=== PATIENT | female | born 1940 | race Caucasian/White ===

== ENCOUNTER 2019-09-06 10:59 | Emergency (ER) | payer MEDICARE, OTHER ==
[2019-09-06] MEDS ORDERED: Tetan/Diph/Pertus SYR(Tdap)* 0.5 ML SYR(BOOSTRIX) use SYR contains LATEX IM ONE (12:52)
--- NOTE | 2019-09-06 12:53 | ED ---
Head Injury - HPI Summary HPI Summary: Patient is a 79 y/o F presenting to the ED for a chief complaint of head injury after a fall down the stairs on 09/04/19. Patient states she put weight on the left side, where she has a prior injury, and tripped. Patient admits headache, nausea, skin tears on the right arm, and neck pain. She notes having an episode of hallucination that has since resolved. Patient denies LOC, vision changes, vomiting, or abdominal pain. She has taken Aleve for her headache without relief. Patient denies taking blood thinners. Last tetanus vaccination is unknown. She denies tobacco or drug use, but admits occasional alcohol use. Allergies noted. Medications reviewed. - History Of Current Complaint Chief Complaint: EDHeadInjury Stated Complaint: FALL PER PT Time Seen by Provider: 09/06/19 12:44 Hx Obtained From: Patient Mechanism Of Injury: Fall From A Standing Position Onset/Duration: Traumatic - Fall, Still Present Onset of Pain: Immediate Severity Currently: Moderate Severity Initially: Moderate Pain Intensity: 4 Pain Scale Used: 0-10 Numeric Location of Head Injury: Diffuse Associated Signs And Symptoms: Neck Pain, Nausea, Headache - Allergies/Home Medications Allergies/Adverse Reactions: Allergies Allergy/AdvReac Type Severity Reaction Status Date / Time Adhesive Tape Allergy RED ITCHY Verified 09/06/19 11:17 HIVES clindamycin Allergy Hives Verified 09/06/19 11:17 LINOCIN Allergy Hives Uncoded 09/06/19 11:17 PMH/Surg Hx/FS Hx/Imm Hx Previously Healthy: Yes Endocrine/Hematology History: Denies: Hx Sickle Cell Disease Cardiovascular History: Denies: Hx Congestive Heart Failure, Hx Hypertension, Hx Pacemaker/ICD, Other Cardiovascular Problems/Disorders Respiratory History: Denies: Hx Asthma, Other Respiratory Problems/Disorders GI History: Denies: Other GI Disorders History: Denies: Other Problems/Disorders Musculoskeletal History: Reports: Hx Arthritis - RIGHT THUMB JOINT Sensory History: Reports: Hx Cataracts - LEFT EYE Denies: Hx Contacts or Glasses, Hx Legally Blind, Hx Deafness, Hx Hearing Aid Opthamlomology History: Reports: Hx Cataracts - LEFT EYE Denies: Hx Contacts or Glasses, Hx Legally Blind EENT History: Denies: Hx Deafness Neurological History: Reports: Hx Migraine - OCCASIONAL Comment Only: Other Neuro Impairments/Disorders - FEL 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 SEVERAL COLONOSCOPIES;. 1985 HYSTERCECTOMY, [facility] BILAT CATARACT 2012 Hx Anesthesia Reactions: No Infectious Disease History: No Infectious Disease History: Denies: Hx Clostridium Difficile, Hx Hepatitis, Hx Human Immunodeficiency Virus (HIV), Hx of Known/Suspected MRSA, Hx Shingles, Hx Tuberculosis, Hx Known/ Suspected VRE, Hx Known/Suspected VRSA, History Other Infectious Disease, Traveled Outside the [place] in Last 30 Days - Family History Known Family History: Negative: Diabetes, Renal Disease - Social History Lives: With Family Alcohol Use: Rare Hx Substance Use: No Substance Use Type: Reports: None Hx Tobacco Use: No Smoking Status (MU): Never Smoked Tobacco Review of Systems Negative: Other - Negative vision changes Positive: Nausea. Negative: Abdominal Pain, Vomiting Positive: Myalgia - Neck Positive: Other - Positive skin tears on the right arm Positive: Headache. Negative: Syncope - LOC Psychological: Other - Positive hallucinations, resolved All Other Systems Reviewed And Are Negative: Yes Physical Exam - Summary Physical Exam Summary: Constitutional: Well-developed, Well-nourished, Alert. (-) Distressed Skin: Warm, Dry. HENT: Normocephalic; Atraumatic Eyes: Conjunctiva normal Neck: Musculoskeletal ROM normal neck. (-) JVD, (-) Stridor, (-) Tracheal deviation Cardio: Rhythm regular, rate normal, Heart sounds normal; Intact distal pulses; Radial pulses are 2+ and symmetric. (-) Murmur Pulmonary/Chest wall: Effort normal. (-) Respiratory distress, (-) Wheezes, (-) Rales Abd: Soft, (-) tenderness, (-) Distension, (-) Guarding, (-) Rebound Musculoskeletal: (-) Edema. 2 small areas of skin tears with no bony tenderness. Lymph: (-) Cervical adenopathy Neuro: Alert, Oriented x3 Psych: Mood and affect Normal Triage Information Reviewed: Yes Vital Signs On Initial Exam: Initial Vitals Temp Pulse Resp BP Pulse Ox 97.3 F 70 19 175/98 97 09/06/19 11:12 09/06/19 11:12 09/06/19 11:12 09/06/19 11:12 09/06/19 11:12 Vital Signs Reviewed: Yes Procedures - Sedation Patient Received Moderate/Deep Sedation with Procedure: No Diagnostics - Vital Signs Vital Signs Temp Pulse Resp BP Pulse Ox 09/06/19 11:12 97.3 F 70 19 175/98 97 - Laboratory Lab Statement: Any lab studies that have been ordered have been reviewed, and results considered in the medical decision making process. Head Injury Course/Dx Course Of Treatment: Patient is here 2 days after falling down stairs. Patient did hit her head and had some neck pain so a CT scan of her head and neck were performed which were negative. Patient has a couple of small superficial skin tears to her arm that do not need repair. Patient has no other injury. Patient is likely suffering from a concussion and was given information about that. - Diagnoses Provider Diagnoses: Concussion, Head injury Discharge ED - Sign-Out/Discharge Documenting (check all that apply): Patient Departure - Discharge - Discharge Plan Condition: Stable Disposition: HOME Patient Education Materials: Concussion (ED) Referrals: Chris Jensen MD [Primary Care Provider] - Additional Instructions: PLEASE RETURN TO EMERGENCY DEPARTMENT FOR ANY NEW OR WORSENING SYMPTOMS. Please follow up with your primary care physician. Please make all follow-ups in 1-3 days unless I advise you otherwise. Take Motrin or Tylenol for pain. If your concussion symptoms continue, there is a concussion center at [facility]. - Billing Disposition and Condition Condition: STABLE Disposition: Home - Attestation Statements Document Initiated by Livier: Yes Documenting Scribe: Ambreen Roblero Provider For Whom Livier is Documenting (Include Credential): Magdiel Zhong MD Scribe Attestation: Ambreen Jay, scribed for Magdiel Zhong MD on 09/06/19 at 1653. Scribe Documentation Reviewed: Yes Provider Attestation: The documentation as recorded by the Ambreen rebolledo accurately reflects the service I personally performed and the decisions made by , Magdiel Zhong MD Status of Scribe Document: Viewed
[2019-09-06 13:56] VITALS: BP 150/80
== END 2019-09-06 13:56 | disposition home or self-care (01) ==
LOC: ED 10:59
DX: S06.0X9A Concussion with loss of consciousness of unspecified duration, initial encounter (principal); Z23 Encounter for immunization; W10.9XXA Fall (on) (from) unspecified stairs and steps, initial encounter; Y92.9 Unspecified place or not applicable; Z88.1 Allergy status to other antibiotic agents; Z90.710 Acquired absence of both cervix and uterus
CPT/HCPCS: 70450; 72125; 90471; 90715; 99282

== ENCOUNTER 2019-10-03 16:00 | Emergency (ER) | payer MEDICARE ==
--- NOTE | 2019-10-03 16:04 | UC ---
General HPI - HPI Summary HPI Summary: 79 yo female presents, accompanied by , s/p fall. She tells me that, about 20min [employer], she was out on a walk with her and tripped over a tree root and fell forward. Landed on her forearms and hit her forehead against the muddy ground. Sustained a laceration to her midline forehead. Bandaged the area and came to . No LOC. Witnessed by . Currently she has a headache 5/10 , but states she has had a headache intermittently for the last 2 weeks as she had a fall down several steps about 2 weeks ago and sustained a concussion. She had a head CT at that time that was normal per pt. She does not take any anti- coags or aspirin. She denies dizziness, vision changes, SOB, chest pain, abdominal pain, n/v, numbness, tingling, or neck pain. tdap was updated 2 weeks ago after other fall - History of Current Complaint Stated Complaint: FALL/FACIAL LACERATION Time Seen by Provider: 10/03/19 16:04 Hx Obtained From: Patient Onset/Duration: Sudden Onset Onset Severity: Moderate Current Severity: Moderate Pain Intensity: 5 - Allergy/Home Medications Allergies/Adverse Reactions: Allergies Allergy/AdvReac Type Severity Reaction Status Date / Time Adhesive Tape Allergy RED ITCHY Verified 10/03/19 16:26 HIVES clindamycin Allergy Hives Verified 10/03/19 16:26 LINOCIN Allergy Hives Uncoded 10/03/19 16:26 Home Medications: Home Medications Calcium Carbonate [Calcium 600] 600 mg PO QAM 03/25/13 [History Confirmed ] Conjugated Estrogens TAB* [Premarin TAB*] 0.3 mg PO QAM 03/25/13 [History Confirmed 10/03/19] Ibuprofen TAB* [Advil TAB*] 200 mg PO PRN 03/25/13 [History Confirmed 06/16/13] Multivitamin [Multivitamins] 1 cap PO QAM 03/25/13 [History Confirmed 10/03/19] Harris-3 Fatty Acids [Fish Oil] 1,000 mg PO QAM 03/25/13 [History Confirmed 10/03] Vitamin B 12 1 tab PO QAM 03/25/13 [History Confirmed 10/03/19] Vitamin D 1 cap PO QAM 03/25/13 [History Confirmed 10/03/19] Citalopram TAB* [Celexa TAB*] 1 tab PO DAILY 01/26/16 [History Confirmed ] diPHENhydraMINE PO* [Benadryl PO*] 1 tab PO DAILY 01/26/16 [History Confirmed ] PMH/Surg Hx/FS Hx/Imm Hx Psychological History: Anxiety, Depression - Surgical History Surgical History: Yes Surgery Procedure, Year, and Place: 2009 RECTOCELE REPAIR and cystocele, [facility]. SEVERAL COLONOSCOPIES;. 1985 HYSTERCECTOMY, [facility] [place] BILAT CATARACT 2012 - Family History Known Family History: Negative: Diabetes, Renal Disease - Social History Occupation: Retired Lives: With Family Alcohol Use: Rare Substance Use Type: None Smoking Status (MU): Never Smoked Tobacco - Immunization History Most Recent Tetanus Shot: 2004 Review of Systems All Other Systems Reviewed And Are Negative: No Constitutional: Positive: Negative Skin: Positive: Other - laceration forehead Eyes: Positive: Negative ENT: Positive: Negative Respiratory: Positive: Negative Cardiovascular: Positive: Negative Gastrointestinal: Positive: Negative Genitourinary: Positive: Negative Motor: Positive: Negative Neurovascular: Positive: Negative Musculoskeletal: Positive: Negative Neurological/Mental Status: Positive: Headache Psychological: Positive: Negative Physical Exam - Summary Physical Exam Summary: GENERAL: NAD. WDWN. No pain distress. SKIN: Midline forehead with vertical linear 2.0cm laceration partial thickness - well approximated at rest. Clean. Scant bleeding. HEENT: Head: AT/NC. No raccoon eyes or battles sign. Eyes: PERRLA. EOM intact. Conjunctiva clear without inflammation or discharge. Ears: Hearing grossly normal. TMs intact, no bulging, erythema, or edema. No hemotympanum Nose: Nasal mucosa pink and moist. NTTP maxillary and frontal sinus. Throat: Posterior oropharynx without exudates, erythema, or tonsillar enlargement. Uvula midline. NECK: Supple. Nontender. FROM CHEST: CTAB. No r/r/w. No accessory muscle use. Breathing comfortably and in no distress. CV: RRR. Pulses intact. Brisk cap refill. ABDOMEN: Soft. NTTP. Bowel sounds present MSK: FROM in B/L UEs and LEs with symmetric strength. NEURO: A&Ox3. 3 word recall, remote, recent memory, ability to follow 2-step directions, and attention intact. CN: II: Peripheral hernandez intact. Vision normal. III, IV, : EOMI. No nystagmus. PERRLA. V: Sensations intact and symmetric. Opens mouth and clenches teeth. VII: No facial asymmetry. Forehead wrinkles. Grins, shuts eyes, frowns, puffs cheeks. VIII: Hearing intact to finger rub. IX, X: Swallows and coughs. Uvula midline. XI: Shrugs shoulders. Turns head against resistance. XII: No tongue deviation [id number] are intact. Gait with normal base. Romberg: maintains balance, no pronator drift. Normal speech. No facial drooping. PSYCH: Age appropriate behavior. Triage Information Reviewed: Yes Vital Signs: Vital Signs: Temp Pulse Resp BP Pulse Ox 98.5 F 66 15 156/85 99 10/03/19 16:22 10/03/19 16:22 10/03/19 16:22 10/03/19 16:22 10/03/19 16:22 Vital Signs Reviewed: Yes Procedures - Laceration/Wound Repair 1 Location: head Description: Linear Length, Depth and Shape: 2.0 Irrigated w/ Saline (ccs): 100 Closure: Skin Adhesive Layer Closure?: No Sterile Dressing Applied?: Yes Course/Dx - Course Course Of Treatment: Wound cleansed with saline and dermabond applied - well approximated. Neuro exam WNL and without focal deficits. I did discussed CT scan of head with pt and her - I recommended she go to the ED to have this done, but they preferred watchful waiting at home. I made that aware that if pt develops worsening headache, develops dizziness, confusion, vision changes, SOB, chest pain, n/v, numbness - to call 911 or go to the ED right away. They voiced understanding and agree with the plan. - Diagnoses Provider Diagnosis: Head injury, Fall Discharge ED - Sign-Out/Discharge Documenting (check all that apply): Patient Departure All imaging exams completed and their final reports reviewed: No Studies - Discharge Plan Condition: Stable Disposition: HOME Patient Education Materials: Head Injury (ED), Skin Adhesive Care (ED) Referrals: Chris Jensen MD [Primary Care Provider] - Additional Instructions: Apply ice to your head/cut to decrease pain and swelling. May take tylenol as directed for discomfort. Your neurological exam was normal today, but after a head injury it is very important to be mindful of your symptoms. -- If you develop a worsening headache, vision changes, dizziness, numbness, weakness, nausea, or vomiting; please go to the ER immediately. - Billing Disposition and Condition Condition: STABLE Disposition: Home
[2019-10-03 16:26] VITALS: BP 156/85
== END 2019-10-03 17:11 | disposition home or self-care (01) ==
LOC: UCEAST 16:00
DX: S01.81XA Laceration without foreign body of other part of head, initial encounter (principal); W18.30XA Fall on same level, unspecified, initial encounter; Y92.9 Unspecified place or not applicable; F41.8 Other specified anxiety disorders; Z79.899 Other long term (current) drug therapy; Z88.1 Allergy status to other antibiotic agents; Z91.09 Other allergy status, other than to drugs and biological substances
CPT/HCPCS: 12001; 12011; 99211; 99212; G0463

== ENCOUNTER 2024-01-30 07:08 | Observation (INO) ==
[2024-01-30 11:51] LABS: ABS Basophils 0.1 10^3/uL (0.0-0.1); ABS Lymphocytes 2.7 10^3/uL (1.0-4.8); ABS Monocytes 0.7 10^3/uL (0.0-0.9); ABS Neutrophils 7.4 10^3/uL (1.5-7.6); Eosinophil % 0.2 %; Hematocrit 36.1 % (35-45); Hemoglobin 12.7 g/dL (11.5-14.3); Lymphocyte % 24.9 %; Mean Corpuscular Hemoglobin 33.1 pg (27-33); Mean Corpuscular Hgb Conc 35.1 g/dL (31-36); Mean Corpuscular Volume 94.2 fL (80-97); Platelet Count 321 10^3/uL (150-450); Red Blood Count 3.83 10^6/uL (3.63-4.92); Red Cell Distribution Width 12.4 % (12-17); White Blood Count 10.9 10^3/uL (3.8-11.8)
[2024-01-30 11:53] LABS: Urine Appearance Clear; Urine Bilirubin Negative (Negative); Urine Blood Negative (Negative); Urine Color Light-Yellow; Urine Glucose Negative (Negative); Urine Ketones Negative (Negative); Urine Nitrite Negative (Negative); Urine Protein Negative (Negative); Urine Specific Gravity 1.009 (1.002-1.030); Urine Urobilinogen Negative (Negative)
[2024-01-30 12:17] LABS: ALT 28 U/L (7-52); AST 28 U/L (13-39); Acetaminophen < 15 mcg/mL; Albumin/Globulin Ratio 1.5 (1-3); Alcohol, S < 13 mg/dL (<13); Alkaline Phosphatase 68 U/L (35-149); Anion Gap 7 mmol/L (2-16); Blood Urea Nitrogen 16 mg/dL (6-24); CO2 Carbon Dioxide 25 mmol/L (22-32); Calcium 9.3 mg/dL (8.6-10.3); Chloride 88 mmol/L (101-111); Creatinine, Serum 0.61 mg/dL (0.51-0.95); Globulin 2.6 g/dL (2-4); Glucose 112 mg/dL (70-100); Salicylate < 2.50 mg/dL (<30); Sodium 120 mmol/L (135-145); Total Bilirubin 0.7 mg/dL (0.2-1.0); Total Protein 6.6 g/dL (6.4-8.9); eGFR CKD-EPI 88.7 (>60)
[2024-01-30 12:18] LABS: Urine Benzodiazepine Screen None Detected (None Detect); Urine Cannabinoids Screen None Detected (None Detect); Urine Opiates Screen None Detected (None Detect)
[2024-01-30 12:31] LABS: TSH Ultra Thyroid Stim Horm 1.96 mcIU/mL (0.34-5.60)
[2024-01-30] MEDS: NS 0.9% 1000 ml BAG 1,000 ML IV ONE (13:56)
[2024-01-30 16:18] LABS: ALT 27 U/L (7-52); Albumin 3.8 g/dL (3.2-5.2); Albumin/Globulin Ratio 1.7 (1-3); Alkaline Phosphatase 64 U/L (35-149); Anion Gap 7 mmol/L (2-16); Blood Urea Nitrogen 19 mg/dL (6-24); CO2 Carbon Dioxide 23 mmol/L (22-32); Calcium 8.4 mg/dL (8.6-10.3); Chloride 91 mmol/L (101-111); Creatinine, Serum 0.55 mg/dL (0.51-0.95); Globulin 2.2 g/dL (2-4); Glucose 103 mg/dL (70-100); Sodium 121 mmol/L (135-145); Total Bilirubin 0.5 mg/dL (0.2-1.0); eGFR CKD-EPI 90.9 (>60)
[2024-01-30] MEDS ORDERED: Senna TAB 8.6 mg TAB PO PRN (16:24)
[2024-01-30] MEDS ORDERED: Polyethylene Glycol 3350 17 GM PACKET PO PRN (16:24)
[2024-01-30 17:32] LABS: Urine Osmo 325 mOsm/kg (150-1150)
[2024-01-30 17:35] LABS: Osmolality Serum 253 mOsm/kg (275-295)
[2024-01-30] MEDS: Enoxaparin 40 MG/0.4 ML SYR SUBCUT SCH (19:30)
[2024-01-30 21:00] LABS: Calcium 9.3 mg/dL (8.6-10.3); Creatinine, Serum 0.58 mg/dL (0.51-0.95); Potassium 4.9 mmol/L (3.5-5.0); eGFR CKD-EPI 89.7 (>60)
[2024-01-31 03:08] LABS: Creatinine, Serum 0.59 mg/dL (0.51-0.95); Potassium 3.8 mmol/L (3.5-5.0); eGFR CKD-EPI 89.4 (>60)
[2024-01-31 07:18] LABS: ABS Eosinophils 0.1 10^3/uL (0.0-0.5); ABS Lymphocytes 3.2 10^3/uL (1.0-4.8); ABS Neutrophils 5.5 10^3/uL (1.5-7.6); Eosinophil % 0.7 %; Hematocrit 33.9 % (35-45); Hemoglobin 12.2 g/dL (11.5-14.3); Lymphocyte % 32.7 %; Mean Corpuscular Hemoglobin 33.9 pg (27-33); Mean Corpuscular Volume 94.2 fL (80-97); Mean Platelet Volume 7.3 fL (7.5-11.2); Platelet Count 296 10^3/uL (150-450); Red Cell Distribution Width 12.3 % (12-17); White Blood Count 9.8 10^3/uL (3.8-11.8)
[2024-01-31 07:33] LABS: Calcium 9.1 mg/dL (8.6-10.3); Creatinine, Serum 0.67 mg/dL (0.51-0.95); Magnesium 1.9 mg/dL (1.9-2.7); Potassium 4.3 mmol/L (3.5-5.0); eGFR CKD-EPI 86.7 (>60)
[2024-01-31] MEDS: Ondansetron 4 mg VIAL 2 MG/ML 2 ml VIAL IV PRN (10:12)
[2024-01-31 13:41] LABS: Calcium 9.1 mg/dL (8.6-10.3); Creatinine, Serum 0.57 mg/dL (0.51-0.95); Potassium 4.3 mmol/L (3.5-5.0); eGFR CKD-EPI 90.1 (>60)
[2024-02-01 09:03] LABS: Calcium 9.6 mg/dL (8.6-10.3); Creatinine, Serum 0.73 mg/dL (0.51-0.95); Potassium 4.2 mmol/L (3.5-5.0); eGFR CKD-EPI 81.5 (>60)
[2024-02-01 10:45] VITALS: BP 136/73
== END 2024-02-01 15:30 | disposition home health service (06) ==
LOC: ED 07:08 → EDHOLD 07:08 → MED 17:43
PROVIDERS: ADMIT Student in an Organized Health Care Education/Training Program; ATTEND Student in an Organized Health Care Education/Training Program